=== PATIENT | female | born 1980 | race Two or more races ===

== ENCOUNTER 2017-09-19 22:05 | Emergency (ER) | payer BC ==
[2017-09-19 22:18] VITALS: BMI 33.9
[2017-09-19] MEDS ORDERED: ACETAMINOPHEN 325 MG TABLET (FP) PO ONE (22:20)
--- NOTE | 2017-09-20 01:09 | PDOC ---
History of Present Illness - General Chief Complaint: Cold Symptoms Stated Complaint: COLD SYMPTOMS Time Seen by Provider: 09/20/17 01:01 History Source: Patient - History of Present Illness Initial Comments: 09/20/17 01:24 36 year old female with sinus pain, nasal congestion, cough, fever x 2 days. sister and niece with similar symptoms. patient has a past medical history of hypertension. 09/20/17 01:29 Past History - Past Medical History Allergies/Adverse Reactions: Allergies Allergy/AdvReac Type Severity Reaction Status Date / Time No Known Allergies Allergy Verified 09/19/17 22:16 Home Medications: Ambulatory Orders Albuterol Sulfate Inhaler - [Ventolin HFA Inhaler -] 1 - 2 inh PO QID PRN #1 inhaler 09/20/17 Azithromycin [Zithromax 250mg Tablets -] 250 mg PO UTDICT #6 tab 09/20/17 Lisinopril 10 mg PO DAILY 09/20/17 Oseltamivir Phosphate [Tamiflu -] 75 mg PO BID #10 capsule 09/20/17 Asthma: Yes COPD: No HTN: Yes - Suicide/Smoking/Psychosocial Hx Smoking History: Never smoked Review of Systems - Review of Systems Able to Perform ROS?: Yes Is the patient limited I[place]ian proficient: No Constitutional: Yes: Fever. No: Symptoms Reported, See HPI, Chills, Diaphoresis , Loss of Appetite, Malaise, Night Sweats, Weakness, Weight Stable, Unintentional Wgt. Loss, Unexplained wgt Loss, Other HEENTM: Yes: Nose Congestion, Other (sinus pain) Respiratory: Yes: Cough Cardiac (ROS): No: Symptoms Reported, See HPI, Chest Pain, Edema, Irregular Heart Rate, Lightheadedness, Palpitations, Syncope, Chest Tightness, Other ABD/GI: No: Symptoms Reported, See HPI, Abdominal Distended, Abd. Pain w/ defecation, Blood Streaked Bowels, Constipated, Diarrhea, Difficulty Swallowing , Nausea, Poor Appetite, Poor Fluid Intake, Rectal Bleeding, Vomiting, Indigestion, Abdominal cramping, Tarry Stools, Other : No: Symptoms Reported, See HPI, Burning, Dysuria, Discharge, Frequency, Flank Pain, Hematuria, Incontinence, Pain, Urgency, Testicular Mass, Testicular Swelling, Lesions, Testicular Pain, Other *Physical Exam - Vital Signs Last Vital Signs Temp Pulse Resp BP Pulse Ox 102.4 F H 94 H 20 160/100 99 09/19/17 22:16 09/19/17 22:16 09/19/17 22:16 09/19/17 22:16 09/19/17 22:16 - Physical Exam General Appearance: Yes: Appropriately Dressed HEENT: positive: Sinus Tenderness (frontal and maxillary) Neck: negative: Lymphadenopathy (R), Lymphadenopathy (L) Respiratory/Chest: positive: Rhonchi Gastrointestinal/Abdominal: positive: Normal Bowel Sounds, Soft. negative: Tender Extremity: positive: Normal Capillary Refill, Normal Inspection, Normal Range of Motion Integumentary: positive: Normal Color, Dry, Warm Neurologic: positive: Fully Oriented, Alert, Normal Mood/Affect ED Treatment Course - RADIOLOGY Chest X-Ray Result: No Infiltrates (official read pending) - Medications Given in the ED: ED Medications Discontinued Medications Generic Name Dose Route Start Last Admin Trade Name Freq PRN Reason Stop Dose Admin Acetaminophen 650 mg 09/19/17 22:20 09/19/17 22:20 Tylenol - PO 09/19/17 22:21 650 mg NOW ONE Administration Progress Note - Progress Note Progress Note: A: sinusitis; flu like symptoms P: Influenza pain control chest xray Medical Decision Making - Medical Decision Making 09/20/17 03:08 repeat v/s: b/p 161/91 T: 98.4 HR: 77 o2 sat 96% on room air *DC/Admit/Observation/Transfer Diagnosis at time of Disposition: Influenza A, Bronchitis - Discharge Dispostion Disposition: HOME - Prescriptions Prescriptions: Albuterol Sulfate Inhaler - [Ventolin HFA Inhaler -] 1 - 2 inh PO QID PRN #1 inhaler PRN Reason: Cough Azithromycin [Zithromax 250mg Tablets -] 250 mg PO UTDICT #6 tab Oseltamivir Phosphate [Tamiflu -] 75 mg PO BID #10 capsule - Referrals Referrals: STAFF,NOT ON [Primary Care Provider] - - Patient Instructions Printed Discharge Instructions: Influenza Additional Instructions: drink plenty of fluids take tylenol / ibuprofen every 6 hours as needed for fever. take tamiflu as prescribed take azithromycin as prescribed. return to the ER if symptoms worsen. - Post Discharge Activity
[2017-09-20] MEDS ORDERED: IBUPROFEN 600 MG TABLET (FP) PO ONE ×2 (01:21→01:34)
--- NOTE | 2017-09-20 02:41 | PDOC ---
*Physical Exam - Vital Signs Last Vital Signs Temp Pulse Resp BP Pulse Ox 102.4 F H 94 H 20 160/100 99 09/19/17 22:16 09/19/17 22:16 09/19/17 22:16 09/19/17 22:16 09/19/17 22:16 ED Treatment Course - ADDITIONAL ORDERS Additional order review: Laboratory Results 09/20/17 01:50 Urine HCG, Qual Negative 09/20/17 01:12 Influenza Types A,B Antigen (YAKOV) - Final Nasopharyngeal Swab - Final - Medications Given in the ED: ED Medications Discontinued Medications Generic Name Dose Route Start Last Admin Trade Name Freq PRN Reason Stop Dose Admin Acetaminophen 650 mg 09/19/17 22:20 09/19/17 22:20 Tylenol - PO 09/19/17 22:21 650 mg NOW ONE Administration Ibuprofen 600 mg 09/20/17 01:21 09/20/17 01:37 Motrin - PO 09/20/17 01:22 600 mg ONCE ONE Administration Medical Decision Making - Medical Decision Making 09/20/17 02:41 agree with care from ROSENDO Dang *DC/Admit/Observation/Transfer Diagnosis at time of Disposition: Influenza A, Bronchitis - Discharge Dispostion Disposition: HOME - Prescriptions Prescriptions: Albuterol Sulfate Inhaler - [Ventolin HFA Inhaler -] 1 - 2 inh PO QID PRN #1 inhaler PRN Reason: Cough Azithromycin [Zithromax 250mg Tablets -] 250 mg PO UTDICT #6 tab Oseltamivir Phosphate [Tamiflu -] 75 mg PO BID #10 capsule - Referrals Referrals: STAFF,NOT ON [Primary Care Provider] - - Patient Instructions Printed Discharge Instructions: Influenza Additional Instructions: drink plenty of fluids take tylenol / ibuprofen every 6 hours as needed for fever. take tamiflu as prescribed take azithromycin as prescribed. return to the ER if symptoms worsen. - Post Discharge Activity
[2017-09-20] MEDS ORDERED: OSELTAMIVIR PHOSPHATE 75 MG CAPSULE PO ONE (02:45)
[2017-09-20] MEDS ORDERED: OSELTAMIVIR PHOSPHATE 75 MG CAPSULE ONE (03:28)
[2017-09-20 03:57] VITALS: BP 161/91; PULSE 77; TEMP 98.4
== END 2017-09-20 03:58 | disposition home or self-care (01) ==
LOC: JER 22:05
DX: J09.X2 Influenza due to identified novel influenza A virus with other respiratory manifestations (principal); J40 Bronchitis, not specified as acute or chronic
CPT/HCPCS: 71046-TC; 84703; 87804; 99281-25